=== PATIENT | male | born 1980 | race Caucasian/White ===

== ENCOUNTER → 2022-08-28 17:37 | Outpatient (CLI) | payer OTHER, SELFPAY ==
--- NOTE | 2022-08-28 17:43 | DI.RAD.S_ITS ---
PROCEDURE: XR KNEE RT 3V INDICATIONS: Right knee injury TECHNIQUE: 3 views of the knee were acquired. COMPARISON: None. FINDINGS: Bones: No fractures or dislocations. No suspicious bony lesions. Soft tissues: No joint effusion. No suspicious soft tissue calcifications. IMPRESSION: No acute osseous abnormality. If clinical symptoms persist or clinical suspicion for pathology is high, a repeat examination in 7-10 days, or advanced imaging such as CT or MRI is suggested for further evaluation. Dictated by: Linnea Cuba M.D. on 08/28/2022 at 18:37 Approved by: Linnea Cuba M.D. on 08/28/2022 at 18:38
== END ==
PROVIDERS: Referring Provider Physician Assistant; Visit Provider Physician Assistant
DX: S83.91XA Sprain of unspecified site of right knee, initial encounter (principal); X58.XXXA Exposure to other specified factors, initial encounter
CPT/HCPCS: 73562